=== PATIENT | male | born 1955 | race Two or more races ===

== ENCOUNTER 2023-09-14 16:35 | Emergency (ER) | payer OTHER ==
[~2023-09-14] VITALS: Ht 175.3 cm; Wt 68.0 kg
[2023-09-14 16:38] VITALS: TEMP 99.5; O2SAT 98
[2023-09-14 17:30] VITALS: BP 122/55; PULSE 100; RESP 16
[2023-09-14] MEDS: MORPHINE SULFATE 4 MG/ML CPJ (NOT FOR IM USE) IV STA (17:30)
[2023-09-14] MEDS: ONDANSETRON HCL 4MG/2ML INJ IV STA (17:30)
[2023-09-14] MEDS: SODIUM CHLORIDE 0.9% 1,000 ML IV ONE (17:30)
[2023-09-14 17:45] LABS: BASOPHILS % 0.4 % (0.0-2.0); EOSINOPHILS % 1.9 % (0.0-5.0); HEMATOCRIT. 36.1 % (42.0-52.0); HEMOGLOBIN. 12.1 g/dL (14.0-18.0); LYMPHOCYTES % 26.8 % (20.0-50.0); MEAN CORPUSCULAR HGB CONC 33.5 g/dL (31.0-37.0); MEAN CORPUSCULAR VOLUME 92.5 fL (80.0-94.0); MEAN PLATELET VOLUME 8.1 fl (7.4-10.4); NEUTROPHILS % 57.9 % (40.0-76.0); PLATELET 200 x1000/uL (130-400); RED BLOOD CELL COUNT 3.91 mill/uL (4.7-6.1); RED CELL DISTRIBUTION WIDTH 14.7 % (11.6-14.6); WHITE BLOOD COUNT 8.1 x1000/uL (4.5-11.0)
[2023-09-14 17:55] LABS: ALANINE AMINOTRANSFERASE 38 IU/L (10-49); ALBUMIN 4.4 g/dL (3.2-4.8); ASPARTATE AMINOTRANSFERASE 43 IU/L (<34); BILIRUBIN TOTAL 0.6 mg/dL (0.1-1.0); CALCIUM 8.9 mg/dL (8.7-10.4); CARBON DIOXIDE 23 mEq/L (21-32); CHLORIDE 106 mEq/L (98-107); CREATININE 0.8 mg/dL (0.6-1.3); GLUCOSE 97 mg/dL (70-105); POTASSIUM 3.2 mEq/L (3.5-5.1); PROTEIN TOTAL 6.8 g/dL (6.0-8.3); SODIUM 138 mEq/L (136-145); TROPONIN I HIGH SENSITIVITY 5 ng/L (3.0-53); UREA NITROGEN BLOOD 9 mg/dL (9-23)
[2023-09-14 18:02] LABS: INR 0.9; PARTIAL THROMBOPLASTIN TIME 25.6 sec (23.4-31.0); PROTHROMBIN TIME 9.9 sec (9.6-11.0)
[2023-09-14] MEDS: POTASSIUM CHLORIDE 20MEQ TABLET SR PO ONE (18:30)
[2023-09-14] MEDS ORDERED: HYDR-4001 MT (19:10)
[2023-09-14] MEDS ORDERED: IBUP-2028 MT (19:10)
== END 2023-09-14 19:31 | disposition home or self-care (01) ==
LOC: ER 16:35
DX: S22.31XA Fracture of one rib, right side, initial encounter for closed fracture (principal); R55 Syncope and collapse; R07.81 Pleurodynia; E11.9 Type 2 diabetes mellitus without complications; I25.2 Old myocardial infarction; Z98.890 Other specified postprocedural states; W18.39XA Other fall on same level, initial encounter; Y93.89 Activity, other specified; Y92.89 Other specified places as the place of occurrence of the external cause; Y99.8 Other external cause status
CPT/HCPCS: 80053; 80320; 83880; 85025; 85610; 85730; 84484; 36415; 71045; 70450; 71250; 93005; 96361; 96374; 96375; 99285; J2405; J2270; J7030; G0480